=== PATIENT | female | born 1995 ===

== ENCOUNTER 2017-03-29 09:42 | Emergency (ER) | payer BC ==
[2017-03-29 10:21] VITALS: RESP 18; BMI 20.4
--- NOTE | 2017-03-29 10:34 | ED PDOC ---
HPI: Abdomen Time Seen by Provider: 03/29/17 10:07 Chief Complaint (Nursing): GI Problem Chief Complaint (Provider): GI Problem History Per: Patient History/Exam Limitations: no limitations Onset/Duration Of Symptoms: Days (x1) Current Symptoms Are (Timing): Still Present Associated Symptoms: Nausea, Vomiting (bright red blood), Other (abdominal pain , headache, dizziness, generalized weakness, rectal bleeding ). denies: Fever, Chills, Chest Pain Additional Complaint(s): Susy Groves is a 22 year old female, with no significant past medical history , who presents to the emergency department complaining of nausea and vomiting bright red blood onset this morning. Patient also reports noticing blood in wipes yesterday. She complains of abdominal pain, headache, weakness, and dizziness after the episode. Patient reports she was admitted in the Hospital on Feb 23 for the same symptoms, and was given pantoprazole with resolution of symptoms. She had an endoscopy done recently and was told she had a small healing tear. She denies any chest pain, shortness of breath, cough or congestion. No further medical complaints. PMD: Ann[place]e. Past Medical History Reviewed: Historical Data, Nursing Documentation, Vital Signs Vital Signs: Last Vital Signs Temp 97 F L 03/29/17 10:18 Pulse 108 H 03/29/17 10:18 Resp 18 03/29/17 10:18 BP 116/63 03/29/17 10:18 Pulse Ox 99 03/29/17 11:30 - Medical History PMH: No Chronic Diseases - Surgical History Surgical History: No Surg Hx - Family History Family History: States: Unknown Family Hx - Home Medications Home Medications: Ambulatory Orders Medication Instructions Recorded Pantoprazole [Protonix EC Tab] 40 mg PO DAILY 10 Days ect 03/29/17 - Allergies Allergies/Adverse Reactions: Allergies Allergy/AdvReac Type Severity Reaction Status Date / Time No Known Allergies Allergy Verified 03/29/17 10:12 Review of Systems ROS Statement: Except As Marked, All Systems Reviewed And Found Negative Constitutional: Positive for: Weakness (generalized ) ENT: Negative for: Nose Congestion Cardiovascular: Negative for: Chest Pain Respiratory: Negative for: Cough, Shortness of Breath Gastrointestinal: Positive for: Nausea, Abdominal Pain, Hematochezia, Hematemesis Neurological: Positive for: Headache, Dizziness Physical Exam - Reviewed Nursing Documentation Reviewed: Yes Vital Signs Reviewed: Yes - Physical Exam Appears: Positive for: Non-toxic Head Exam: Positive for: ATRAUMATIC, NORMAL INSPECTION, NORMOCEPHALIC Skin: Positive for: Normal Color, Warm, Dry Eye Exam: Positive for: Normal appearance, EOMI, PERRL ENT: Positive for: Normal ENT Inspection Neck: Positive for: Painless ROM, Supple Cardiovascular/Chest: Positive for: Regular Rate, Rhythm. Negative for: Murmur Respiratory: Positive for: Normal Breath Sounds (clear b/l). Negative for: Respiratory Distress Gastrointestinal/Abdominal: Positive for: Normal Exam, Soft. Negative for: Tenderness, Guarding, Rebound Back: Positive for: Normal Inspection. Negative for: L CVA Tenderness, R CVA Tenderness, Vertebral Tenderness Rectal: Positive for: Rectal Tone Is: (intact). Negative for: Hemorrhoids, Other (no gross blood identified. ) Extremity: Positive for: Normal ROM. Negative for: Tenderness, Deformity, Swelling Neurologic/Psych: Positive for: Alert, Oriented - Laboratory Results Result Diagrams: 03/29/17 11:21 03/29/17 11:21 Interpretation Of Abn Labs: no acute - ECG O2 Sat by Pulse Oximetry: 99 (RA) Pulse Ox Interpretation: Normal - Progress ED Course And Treament: 1335: Spoke with Dr. Mathew who is at bedside speaking with patients. Wants pt. to be dc. Pantaprazole daily. See him in 1 week. Pt. is aaox3. Pain free. Tolerated Po. Medical Decision Making Medical Decision Making: Initial Impression: Initial Plan: --CMP --NPO diet --CBC w/ differential --PTT --PT --Sodium Chloride 1,000 ml IV 1,000 mls/hr --Zofran Inj 4 mg IV --Protonix Inj 40 mg IVP --Occult blood, stool, ER --Reevaluation Scribe Attestation: Documented by Sina Gipson, acting as a scribe for Manny Mantilla MD Provider Scribe Attestation: All medical record entries made by the Scribe were at my direction and personally dictated by me. I have reviewed the chart and agree that the record accurately reflects my personal performance of the history, physical exam, medical decision making, and the department course for this patient. I have also personally directed, reviewed, and agree with the discharge instructions and disposition. Disposition - Clinical Impression Clinical Impression: GI bleed - Patient ED Disposition Is Patient to be Admitted: No Counseled Patient/Family Regarding: Studies Performed, Diagnosis, Need For Followup, Rx Given - Disposition Referrals: Rafi Mathew MD [Staff Provider] - 04/05/17 Disposition: Routine/Home Disposition Time: 13:00 Condition: STABLE Additional Instructions: Return if not better in 3 days. Prescriptions: Pantoprazole [Protonix EC Tab] 40 mg PO DAILY 10 Days ect Instructions: Gastrointestinal Bleeding Forms: [facility] (Latvian), [facility] ED School/Work Excuse
[2017-03-29] MEDS ORDERED: Sodium Chloride 0.9% 1,000 ML IV STA (10:37)
[2017-03-29 11:34] LABS: BASO # 0.1 K/uL (0.0-0.2); BASO % 0.8 % (0.0-2.0); EOS # 0.1 K/uL (0.0-0.7); EOS % 1.3 % (0.0-4.0); HEMOGLOBIN 11.5 g/dL (12.0-16.0); LYMPH # 1.6 K/uL (1.0-4.3); LYMPH % 26.2 % (20.0-40.0); MEAN CELL VOLUME 82.4 fl (81.0-99.0); MEAN CORPUSCULAR HEMOGLOBIN 26.3 pg (27.0-31.0); MEAN CORPUSCULAR HGB CONC 31.9 g/dL (33.0-37.0); MEAN PLATELET VOLUME 9.2 fl (7.2-11.7); MONO # 0.5 K/uL (0.0-0.8); MONO % 7.4 % (0.0-10.0); NEUT % 64.3 % (50.0-75.0); NRBC % 0.1 % (0.0-0.0); RBC 4.37 Mil/uL (3.80-5.20); RED CELL DISTRIBUTION WIDTH 14.6 % (11.5-14.5); WHITE BLOOD COUNT 6.2 K/uL (4.8-10.8)
[2017-03-29 11:46] LABS: INR 1.1 (0.9-1.2); PARTIAL THROMBOPLASTIN TIME 31.5 Seconds (25.6-37.1); PROTHROMBIN TIME 12.4 Seconds (9.8-13.1)
[2017-03-29 12:09] LABS: ALB/GLOB RATIO 1.2 (1.0-2.1); ALBUMIN 4.5 g/dL (3.5-5.0); ALT/SGPT 31 U/L (9-52); AST/SGOT 40 U/L (14-36); BLOOD UREA NITROGEN 6 mg/dl (7-17); CALCIUM 9.3 mg/dL (8.4-10.2); GFR AFRICAN-AMERICAN > 60; GFR NON-AFRICAN AMERICAN > 60
--- NOTE | 2017-03-29 13:48 | CP.PCM.CON ---
History of Present Illness - History of Present Illness History of Present Illness: 22 yo female brought to the ER after vomiting blood. Patient states she was brushing her teeth which triggered vomiting and immediately saw blood Had similar problem last month at [facility] and discharge summary concluded she had a Sunni Victor tear. Has been on pantoprazole up untill recently and was better. Has daily migraine headaches and meds don't help. She also noted today blood per rectum though occult blood of stool in ER was negative. Review of Systems - Constitutional Constitutional: absent: Chills - EENT Eyes: absent: Blurred Vision Ears: absent: Decreased Hearing Nose/Mouth/Throat: absent: Epistaxis - Cardiovascular Cardiovascular: absent: Chest Pain - Respiratory Respiratory: absent: Dyspnea - Gastrointestinal Gastrointestinal: Hematemesis. absent: Abdominal Pain - Genitourinary Genitourinary: absent: Change in Urinary Stream (for one year) - Reproductive: Female Reproductive:Female: Amenorrhea Past Patient History - Past Social History Smoking Status: Never Smoked - PSYCHIATRIC Hx Substance Use: No - SURGICAL HISTORY Hx Surgeries: No - ANESTHESIA Hx Anesthesia: No Meds Home Medications: Home Medication List Medication Instructions Recorded Confirmed Type Pantoprazole [Protonix EC Tab] 40 mg PO DAILY 10 Days ect 03/29/17 Rx Allergies/Adverse Reactions: Allergies Allergy/AdvReac Type Severity Reaction Status Date / Time No Known Allergies Allergy Verified 03/29/17 10:12 Physical Exam - Constitutional Appears: Well Additional comments: Thin - Head Exam Head Exam: ATRAUMATIC - Eye Exam Eye Exam: Normal appearance - ENT Exam ENT Exam: Mucous Membranes Moist - Neck Exam Neck exam: Positive for: Normal Inspection - Respiratory Exam Respiratory Exam: Clear to Auscultation Bilateral - Cardiovascular Exam Cardiovascular Exam: REGULAR RHYTHM, +S1, +S2 - GI/Abdominal Exam GI & Abdominal Exam: Normal Bowel Sounds, Soft. absent: Tenderness - Rectal Exam Rectal Exam: Deferred Results - Vital Signs Recent Vital Signs: Last Vital Signs Temp 97 F L 03/29/17 10:18 Pulse 108 H 03/29/17 10:18 Resp 18 03/29/17 10:18 BP 116/63 03/29/17 10:18 Pulse Ox 99 03/29/17 13:39 - Labs Result Diagrams: 03/29/17 11:21 03/29/17 11:21 Labs: Laboratory Results - last 24 hr 02/03/29/17 03/29/17 11:21 11:21 11:21 WBC 6.2 RBC 4.37 Hgb 11.5 L Hct 36.0 MCV 82.4 MCH 26.3 L MCHC 31.9 L RDW 14.6 H Plt Count 184 MPV 9.2 Neut % (Auto) 64.3 Lymph % (Auto) 26.2 [place] % (Auto) 7.4 Eos % (Auto) 1.3 Baso % (Auto) 0.8 Neut # (Auto) 4.0 Lymph # (Auto) 1.6 [place] # (Auto) 0.5 Eos # (Auto) 0.1 Baso # (Auto) 0.1 PT 12.4 INR 1.1 APTT 31.5 Sodium 140 Potassium 3.7 Chloride 106 Carbon Dioxide 23 Anion Gap 15 BUN 6 L Creatinine 0.6 L Est GFR ( Amer) > 60 Est GFR (Non-Af Amer) > 60 Random Glucose 85 Calcium 9.3 Total Bilirubin 0.7 AST 40 H ALT 31 Alkaline Phosphatase 99 Total Protein 8.1 Albumin 4.5 Globulin 3.6 Albumin/Globulin Ratio 1.2 Stool Occult Blood Blood Type Blood Type Confirm Antibody Screen BBK History Checked 03/29/17 03/29/17 03/29/17 11:28 12:08 12:20 WBC RBC Hgb Hct MCV MCH MCHC RDW Plt Count MPV Neut % (Auto) Lymph % (Auto) [place] % (Auto) Eos % (Auto) Baso % (Auto) Neut # (Auto) Lymph # (Auto) [place] # (Auto) Eos # (Auto) Baso # (Auto) PT INR APTT Sodium Potassium Chloride Carbon Dioxide Anion Gap BUN Creatinine Est GFR ( Amer) Est GFR (Non-Af Amer) Random Glucose Calcium Total Bilirubin AST ALT Alkaline Phosphatase Total Protein Albumin Globulin Albumin/Globulin Ratio Stool Occult Blood Negative Blood Type O POSITIVE Blood Type Confirm O POSITIVE Antibody Screen Negative BBK History Checked No verified bt Assessment & Plan (1) GI bleed Assessment and Plan: Currently no active bleeding. The bleeding does not appear to have been hemodynamically significant. May have been mMallory Victor, gastritis, or ulcer .Patient can be discharged home on pantoprazole 40 mg daily. She was instructed to see me within one week in office. Status: Acute
[2017-03-29 14:11] VITALS: BP 120/78; PULSE 78; TEMP 98; O2SAT 98
== END 2017-03-29 14:16 | disposition home or self-care (01) ==
LOC: H.ER 09:42
DX: K92.2 Gastrointestinal hemorrhage, unspecified (principal)
CPT/HCPCS: 80053; 81025; 85025; 85610; 85730; 86850; 86900; 96374; 99282; C9113; G0328; J2405; J7040